=== PATIENT | female | born 1945 | race Caucasian/White ===

== ENCOUNTER → 2017-02-09 | Outpatient (CLI) | payer OTHER ==
[2016-07-24 11:00] VITALS: BP 113/47
[~2017-02-09] MED LIST: ASPI325T11 PO; ASPI81TA2 PO; ATOR20TA58 PO; CHOL20003 PO; CLOP75TA PO; CYAN25003 SL; GEMF600T3 PO; GLIM4TAB2 PO; IPRA4AER IH; LEVO150T5 PO; LOSA1TAB16 PO; MELO7.5O PO; METF-620 PO; METO25TA4 PO; PRIM50TA PO; TIOT18CA IH
--- NOTE | 2017-02-10 10:26 | CARD ---
APPROVED REPORT EXAM: Two-dimensional and M-mode echocardiogram with Doppler and color Doppler. Other Information Quality : Good INDICATION Cardiac Disease: CAD 2D DIMENSIONS RVDd3.7 (2.9-3.5cm)Left Atrium(2D)3.3 (1.6-4.0cm) IVSd1.4 (0.7-1.1cm)Aortic Root(2D)2.7 (2.0-3.7cm) LVDd4.5 (3.9-5.9cm)LVOT Diameter2.1 (1.8-2.4cm) PWd1.2 (0.7-1.1cm)LVDs3.4 (2.5-4.0cm) FS (%) 27.0 %SV44.5 ml LVEF(%)55.0 (>50%) Aortic Valve AoV Peak Talat.159.7cm/sAoV VTI39.9cm AO Peak GR.10.2mmHgLVOT Peak Talat.88.6cm/s LVOT VTI 22.92cmAO Mean GR.6mmHg SAMI (VMAX)1.72xf7GKD (VTI)1.94cm2 Mitral Valve MV E Hvgqxhju39.6cm/sMV DECEL QHAW308zq MV A Iejdxkso65.2cm/sMV MTP35hm E/A Ratio1.0MVA (PHT)3.31cm2 TDI E/Lateral E'10.9E/Medial E'11.2 Tricuspid Valve TR P. Dekblujz297pu/sRAP EWPNUVXP9yuNg TR Peak Gr.48sdApGXDP63vqTe Pulmonary Vein S1 Zgycegwm96.0cm/sD2 Zwrgfbrz56.1cm/s PVa lcitfigo535jiew LEFT VENTRICLE The left ventricle is normal size. There is mild concentric left ventricular hypertrophy. The left ve ntricular systolic function is normal and the ejection fraction is within normal range. The Ejection Fraction is 55-60%. There is normal LV segmental wall motion. The left ventricular diastolic function and filling is normal for age. RIGHT VENTRICLE The right ventricle is normal size. The right ventricular systolic function is normal. ATRIA The left atrium size is normal. The right atrium size is normal. The interatrial septum is intact wit h no evidence for an atrial septal defect or patent foramen ovale as noted on 2-D or Doppler imaging. The septum is slightly thickened and calcified. AORTIC VALVE Not well visualized. Doppler and Color Flow revealed no significant aortic regurgitation. There is no significant aortic valvular stenosis. MITRAL VALVE The mitral valve is normal in structure and function. There is no evidence of mitral valve prolapse. There is no mitral valve stenosis. Doppler and Color-flow revealed trace mitral regurgitation. TRICUSPID VALVE The tricuspid valve is normal in structure and function. Doppler and Color Flow revealed trace tricus pid regurgitation. The PA pressure was estimated at 37 mmHg. There is no tricuspid valve stenosis. PULMONIC VALVE Doppler and Color Flow revealed no pulmonic valvular regurgitation. There is no pulmonic valvular shayy nosis. GREAT VESSELS The aortic root is normal in size. The ascending aorta is normal in size. The IVC is normal in size a nd collapses >50% with inspiration. PERICARDIAL EFFUSION There is no evidence of significant pericardial effusion. Critical Notification Critical Value: No <Conclusion> The left ventricular systolic function is normal and the ejection fraction is within normal range. Th e Ejection Fraction is 55-60%. There is normal LV segmental wall motion. Doppler and Color Flow revealed trace tricuspid regurgitation. The PA pressure was estimated at 37 mm Hg.
== END | disposition home or self-care (01) ==
LOC: ECHO 11:01
PROVIDERS: ATTEND Internal Medicine Cardiovascular Disease
DX: I25.10 Atherosclerotic heart disease of native coronary artery without angina pectoris (principal); I51.7 Cardiomegaly
CPT/HCPCS: 93306

== ENCOUNTER → 2017-08-31 | Outpatient (CLI) | payer OTHER ==
[2016-07-24 11:00] VITALS: BP 113/47
[~2017-08-31] MED LIST changes: +ASPI-630 PO; -ASPI81TA2 PO; -CHOL20003 PO; +CHOL20009 PO; -LOSA1TAB16 PO; +LOSA1TAB19 PO; +REGADENOSON 0.4 MG/5 ML DISP.SYRIN. IV ONE
--- NOTE | 2017-08-31 13:35 | RAD ---
MR#: [id number] Date of Study: 08/31/2017 Ordering Physician: NATALIIA CHISHOLM, Referring Physician: ALEXI MANN Tech: MONIQUE Castro ARRT (R) (N) APPROVED REPORT Test Type: Pharmacological Stress Nurse/Tech: Alivia Nobles R.N. Test Indications: cad Cardiac History: stents 1 1/2 years ago, htn, dm Medications: see copy Medical History: see ehr Resting ECG: sr Resting Heart Rate: 57 bpm Resting Blood Pressure: 174/62mmHg Pretest Chest Pain: No chest pain Nurse/Tech Notes lungs cta, heart tones regular Consent: The procedure was explained to the patient in lay terms. Informed consent was witnessed. John eout was entered into [employer]. History and Stress Test performed by Alivia Nobles R.N. Pharm. Details Pharmacologic stress testing was performed using 0.4mg per 5ml of regadenoson given intravenously ove r 7-10 seconds. Stress Symptoms No chest pain or symptoms. POST EXERCISE Reason for Termination: Infusion complete Target HR: No Max HR: 84 bpm Max Blood Pressure: 160/60mmHg Chest Pain: No. Arrhythmia: No. ST Change: Yes. St depression in V5 and V6 noted, II III avf also INTERPRETATION Stress EKG Conclusion: Baseline EKG showed sinus rhythm. No ischemic changes at peak stress. No arr hythmias. Imaging Protocol IMAGE PROTOCOL: Rest Tc-99m/stress Tc-99m 1 day Rest: Stress: Viability: Radiopharm.Tc99m AznvsixxjVw60z Sestamibi Qjkc69fZc 34mCi Img Date 08/31/2017 08/31/2017 Rest Admin Site:IV - Right ForearmAdministrator:MONIQUE Castro ARRT (R)(N) Stress Admin Site: IV - Right ForearmAdministrator: JOAN Pride STRESS DATA End Diast. Vol.110.0mlAv. Heart Rate68.0bpm End Syst. Vol.27.0mlCO Index BSA0.0L/min Myocardial Svwq286.0gEject. Fjlpxuzk43.0% Stress Rates Pk. Fill Rate2.17EDV/secLVtime Pk. Fill 230.61msec Pk. Empty Rate2.75ESV/secLVtime Pk. Fxcqa924.70msec /3 Pk. Fill1.57EDV/sec Stress Scores Regional WT0.00Summed WT0.00 Regional WM0.00Summed WM2.00 LV Perfusion Small to moderate reversible defect involving the anteroapical wall consistent with ischemia. Wall Motion Normal left ventricle systolic function with ejection fraction calculated at 75%. LV Perf. Quant 17 Seg. SSS12.00 17 Seg. SRS4.00 17 Seg. SDS8.00 Stress Defect Extent (% LAD)23.10Rest Defect Extent (% LAD)10.60Rev. Defect Extent (% LAD)6.30 Stress Defect Extent (% LCX) 56.30Rest Defect Extent (% LCX)38.80Rev. Defect Extent (% LCX)6.30 Stress Defect Extent (% RCA)0.00Rest Defect Extent (% RCA)0.00Rev. Defect Extent (% RCA)0.00 Stress Defect Extent (% FIDELINA)21.10Rest Defect Extent (% FIDELINA)10.90Rev. Defect Extent (% FIDELINA)5.90 Conclusion 1. Regadenoson cardioisotope stress test showed grpwh-ip-pczxmmpv anteroapical wall ischemia. 2. Normal left ventricular systolic function with ejection fraction calculated at 75%. 3. Intermediate risk for cardiac events. Signed by : Nataliia Chisholm, Electronically Approved : 08/31/2017 13:35:07
== END | disposition home or self-care (01) ==
LOC: NM 08:50
PROVIDERS: ATTEND Internal Medicine Cardiovascular Disease
DX: I25.10 Atherosclerotic heart disease of native coronary artery without angina pectoris (principal); I10 Essential (primary) hypertension; E11.9 Type 2 diabetes mellitus without complications; I49.5 Sick sinus syndrome
CPT/HCPCS: 78452; 93017; 96374; 96375; 96376; A9500; J2785

== ENCOUNTER 2017-09-03 09:45 | Outpatient (CLI) | payer OTHER ==
[2017-09-03 10:10] LABS: HEMATOCRIT 33.5 % (36.0-47.0); HEMOGLOBIN 11.2 g/dL (12.0-15.5); MEAN CORPUSCULAR HEMOGLOBIN 36 pg (25-35); MEAN CORPUSCULAR HGB CONC 34 g/dL (31-37); MEAN CORPUSCULAR VOLUME 106 fL (79-100); PLATELET COUNT 357 x10^3/uL (140-400); RED BLOOD COUNT 3.17 x10^6/uL (3.50-5.40); WHITE BLOOD COUNT 10.7 x10^3/uL (4.0-11.0)
[2017-09-03 10:17] LABS: ANION GAP 9 (6-14); BLOOD UREA NITROGEN 16 mg/dL (7-20); CALCIUM 8.6 mg/dL (8.5-10.1); CARBON DIOXIDE 31 mmol/L (21-32); CHLORIDE 101 mmol/L (98-107); CREATININE 0.9 mg/dL (0.6-1.0); GFR 61.7; GLUCOSE 191 mg/dL (70-99); POTASSIUM 4.5 mmol/L (3.5-5.1); SODIUM 141 mmol/L (136-145)
[2017-09-03] MEDS ORDERED: LIDOCAINE 2% 20 ML VIAL. (10:25)
[2017-09-03] MEDS ORDERED: IOHEXOL 300 MG/ML 100ML VIAL. ×2 (10:25→11:32)
[2017-09-03 10:30] LABS: INR 0.9 (0.8-1.1)
[2017-09-03] MEDS ORDERED: fentaNYL PF VIAL 100 MCG/2 ML VIAL (11:03)
[2017-09-03] MEDS ORDERED: HEPARIN for IV BOLUS 10,000 UNIT/10 ML VIAL. (11:04)
[2017-09-03] MEDS ORDERED: VERAPAMIL 5 MG/2 ML VIAL. (11:04)
[2017-09-03] MEDS ORDERED: MIDAZOLAM HCL/PF 5 MG/5 ML VIAL. (11:04)
[2017-09-03] MEDS: IV 1/2 NORMAL SALINE 1,000 ML IV (11:05)
[2017-09-03] MEDS ORDERED: NITROGLYCERIN 200 MCG/2 ML SYRINGE FOR CATH/VASC LAB. (11:05)
[2017-09-03] MEDS ORDERED: BIVALIRUDIN 250 MG VIAL. IV (11:23)
[2017-09-03] MEDS: BIVALIRUDIN 250 MG VIAL. IV (11:26)
[2017-09-03] MEDS: IOHEXOL 300 MG/ML 100ML VIAL. IART (11:30)
[2017-09-03] MEDS ORDERED: CONTRAST GIVEN MC (11:30)
[2017-09-03] MEDS ORDERED: CLOPIDOGREL BISULFATE 75 MG TABLET (11:38)
[2017-09-03] MEDS ORDERED: hydrALAZINE 20 MG/ML VIAL. (11:41)
[2017-09-03] MEDS ORDERED: ASPIRIN 325 MG TABLET (11:41)
[2017-09-03] MEDS: CLOPIDOGREL BISULFATE 75 MG TABLET PO (11:45)
[2017-09-03] MEDS: fentaNYL PF VIAL 100 MCG/2 ML VIAL IV (11:48)
[2017-09-03] MEDS: VERAPAMIL 5 MG/2 ML VIAL. IART (11:48)
[2017-09-03] MEDS: MIDAZOLAM HCL/PF 5 MG/5 ML VIAL. IV (11:48)
[2017-09-03] MEDS: NITROGLYCERIN 200 MCG/2 ML SYRINGE FOR CATH/VASC LAB. IART (11:49)
[2017-09-03] MEDS: LIDOCAINE 2% 20 ML VIAL. IJ (11:50)
[2017-09-03] MEDS: hydrALAZINE 20 MG/ML VIAL. IVP (11:50)
[2017-09-03] MEDS: HEPARIN for IV BOLUS 10,000 UNIT/10 ML VIAL. IART (11:50)
[2017-09-03] MEDS: ASPIRIN 325 MG TABLET PO (12:30)
[2017-09-03] MEDS ORDERED: IV 1/2 NORMAL SALINE 1,000 ML IV (12:33)
[2017-09-03] MEDS ORDERED: NITROGLYCERIN SUBLINGUAL 0.4 MG BOTTLE OF 25. SL (12:45)
[2017-09-04] MEDS ORDERED: ASPIRIN ENTERIC COATED 325 MG TABLET.DR. PO (08:00)
[2017-09-04] MEDS ORDERED: CLOPIDOGREL BISULFATE 75 MG TABLET PO (08:00)
== END 2017-09-03 15:30 | disposition home or self-care (01) ==
LOC: CCL 09:45
DX: I25.110 Atherosclerotic heart disease of native coronary artery with unstable angina pectoris (principal); E78.00 Pure hypercholesterolemia, unspecified; Z98.51 Tubal ligation status; Z90.710 Acquired absence of both cervix and uterus; J44.9 Chronic obstructive pulmonary disease, unspecified; I10 Essential (primary) hypertension; E11.9 Type 2 diabetes mellitus without complications; F17.200 Nicotine dependence, unspecified, uncomplicated; Z87.440 Personal history of urinary (tract) infections
CPT/HCPCS: 36415; 80048; 85027; 85610; 92928; 93458; 99152; 99153; C1769; C1874; C1887; C1892; C9600; J0360; J0583; J1644; J2250; J3010; J3490; Q9967

== ENCOUNTER 2018-06-15 12:47 | Emergency (ER) | payer OTHER ==
[~2018-06-15] VITALS: Ht 162.6 cm; Wt 102.1 kg
[~2018-06-15 12:47] MED LIST changes: -GEMF600T3 PO; +GEMF600T4 PO; -METF-620 PO; +METF10007 PO; -REGADENOSON 0.4 MG/5 ML DISP.SYRIN. IV ONE
[2018-06-15] MEDS ORDERED: DIPHTH,PERTUSS(ACELL),TET TOX 0.5 ML DISP.SYRIN. VAX IM ONE (13:45)
[2018-06-15] MEDS ORDERED: oxyCODONE/APAP 5/325 1 TAB TABLET PO ONE ×2 (13:45→15:15)
--- NOTE | 2018-06-15 13:53 | PHYS DOC ---
Past Medical History Past Medical History: Diabetes-Type II, Hypertension Additional Past Medical Histor: heart stent Alcohol Use: None Drug Use: None Adult General Chief Complaint Chief Complaint: SHOULDER INJURY [facility] HPI Patient is a pleasant 72-year-old female who presents to the emergency department for evaluation. She states that she tripped down 2 stairs in her garage, and fell to the ground, landing primarily on her right side. She skinned her right knee, is complaining of right knee and right hip pain, as well as right shoulder and lumbar spine pain. She denies hitting her head or any loss of consciousness. She denies any neck pain or upper back pain. She denies any numbness or weakness but she was able to ambulate after the fall, but was somewhat painful to do so, with the pain in her right hip and lower back. She is able to move her right shoulder, although it is also painful to do so. She denies any chest pain or shortness of breath, dizziness or lightheadedness either prior to or subsequent to the fall. Movement and palpation worsen her pain. There are no alleviating factors to her symptoms. Review of Systems Review of Systems Constitutional: Denies fever or chills [] Eyes: Denies change in visual acuity, redness, or eye pain [] HENT: Denies nasal congestion or sore throat [] Respiratory: Denies cough or shortness of breath [] Cardiovascular: The patient denies any shortness of breath, chest pain, palpitations, or orthopnea [] GI: Denies abdominal pain, nausea, vomiting, bloody stools or diarrhea [] : Denies dysuria or hematuria [] Musculoskeletal:No additional information not addressed in HPI[] Integument: Patient does have a chronic fungal type appearing rash on her left [place] and right foot. Otherwise, Denies rash or skin lesions [] Neurologic: Denies headache, focal weakness or sensory changes [] Endocrine: Denies polyuria or polydipsia [] All other systems were reviewed and found to be within normal limits, except as documented in this note. Current Medications Current Medications Current Medications Medications (Trade) Dose Ordered Sig/Young Start Time Stop Time Status Last Admin Dose Admin Diphtheria/ Tetanus/Acell Pertussis (Boostrix) 0.5 ml ONCE ONCE 06/15/18 13:45 06/15/18 14:02 DC 06/15/18 13:45 0.5 ML Oxycodone/ Acetaminophen (Percocet 5/325) 1 tab 1X ONCE 06/15/18 15:15 06/15/18 15:16 DC 06/15/18 15:19 1 TAB Allergies Allergies Allergies Coded Allergies Type Severity Reaction Last Updated Verified No Known Drug Allergies 05/22/16 No Physical Exam Physical Exam PHYSICAL EXAM: CONSTITUTIONAL: Well developed, well nourished HEAD: normocephalic, atraumatic EENT: PERRL, EOMI. Conjunctivae normal color, sclerae non-icteric; moist mucous membranes. NECK: Supple, non-tender; no meningismus.There is no bony tenderness to palpation of the thoracic or lumbar spine. LUNGS: Lungs CTA, breathing even and unlabored. Normal air movement. HEART: Regular rate and rhythm, no murmur CHEST: No deformity; non-tender ABDOMEN: The abdomen is soft, and non-tender, no masses or bruits. EXTREM: There is a superficial abrasion to the right knee, without any definite bony tenderness to palpation. There is no crepitus, or joint effusion. There is normal range of motion in the right knee. There is diffuse tenderness to palpation of the right hip, although range of motion is present. It is relatively painful. However there is pain on palpation. There is diffuse tenderness to palpation of the right shoulder. The remainder of the right upper extremity and the other extremities are atraumatic, with Normal ROM; no deformity, no calf tenderness. Normal pulses palpable in all extremities. There is no pedal edema. SKIN: No rash; no diaphoresis NEURO: Alert; normal speech and cognition; CN's grossly intact; strength grossly intact without focal deficit. BACK: No CVA TTP. There is mild tenderness to palpation in lumbar spine diffusely without any focal bony tenderness to palpation. Current Patient Data Vital Signs Vital Signs Date Time Temp Pulse Resp B/P (MAP) Pulse Ox O2 Delivery O2 Flow Rate FiO2 06/15/18 15:19 18 98 06/15/18 13:05 97.7 72 181/73 (109) Room Air 97.7 EKG EKG [] Radiology/Procedures Radiology/Procedures [PROCEDURE: SHOULDER 2+V RIGHT KNEE RIGHT 3V, HIP RIGHT 2V WITH PELVIS, LUMBAR SPINE 2-3V, SHOULDER 2+V RIGHT History: PT FELL THIS AFTERNOON,RT KNEE PAIN,LACERATION. Right hip pain. Right knee pain with laceration. Low back pain. Right shoulder pain. Comparison: None are available AP pelvis with two-view right hip Suboptimal bone detail due to body habitus, but no evidence of an acute or displaced fracture. Joint space intact. Enthesophytes about the skeletal pelvis. Mild degenerative changes about the hips. Mild chondrocalcinosis at the pubic symphysis. IMPRESSION: No apparent acute findings. If symptoms persist, consider MRI of the right hip. 3 view right shoulder Degenerative changes at the acromioclavicular joint. Old fracture deformity of the right lateral fourth rib. No evidence of acute fracture or dislocation. Mild bone hypertrophy at the greater tuberosity. IMPRESSION: No acute fracture or dislocation Three-view lumbar spine Vertebral body height and alignment are intact. Mild degenerative spondylosis with marginal spurring. Dense calcifications of the abdominal aorta. Small nonspecific calcification in the right upper quadrant, indeterminant. This is not the typical morphology of a gallstone. IMPRESSION: Degenerative spondylosis without evidence of compression fracture or subluxation. 3 view right knee Calcified lesion within the distal femur, centered at the metaphysis and marginating the growth plate, appearance and location would be typical for an enchondroma, measures 2.8 cm. Mild degenerative changes at the medial joint compartment of the knee. Enthesophytes at the extensor mechanism attachments. Vascular calcification noted There is an expansile bone lesion at the proximal fibula measures about 5.3 cm longitudinal. Indeterminate appearance. IMPRESSION: 1. Expansile bone lesion of the proximal fibula, uncertain etiology. Further evaluation could be obtained with outpatient MRI. 2. Distal femur lesion, most likely an enchondroma. 3. No evidence of acute fracture or dislocation. ] PROCEDURE: CT PELVIS WO CONTRAST CT of the pelvis without contrast, 06/15/2018: HISTORY: Fall, pain Noncontrast scans were obtained with multiplanar reconstructions produced. There is moderate degenerative change at both hip joints. There is spurring along both greater trochanters. Calcifications adjacent to both greater trochanters are probably tendinous. There are moderate spurs along the lateral aspects of both iliac crests. No acute fracture or dislocation is identified. Moderate degenerative change is present in the lower lumbar spine. Spurring is producing moderate to severe foraminal encroachment bilaterally at L5-S1. Aortoiliac iliac calcific plaquing is present. No pelvic mass or hematoma is identified. Incidental note is made of a 2 cm medium density mass arising from the lateral aspect of the right kidney. This is probably a complicated cyst, although a solid renal mass cannot be excluded. IMPRESSION: 1. No acute bony abnormality is detected. 2. Moderate degenerative change at both hip joints and in the lower lumbar spine. 3. Small right renal nodule. Nonemergent renal ultrasound may be useful for further evaluation. Course & Med Decision Making Course & Med Decision Making Pertinent Imaging studies reviewed. (See chart for details) [3:50 PM: The patient's condition remained stable. I discussed test results with the patient and her family, the need for close follow-up, and return precautions. The patient was initially hesitant to bear weight on her right hip secondary to pain so CT was obtained to rule out occult hip or pelvis fracture, which was not evident and imaging. Dragon Disclaimer Dragon Disclaimer This electronic medical record was generated, in whole or in part, using a voice recognition dictation system. Departure Departure Impression: Primary Impression: Contusion, hip Additional Impressions: Accidental fall Abrasion Disposition: 01 HOME, SELF-CARE Condition: STABLE Referrals: SRAVAN BRADLEY MD (PCP) Patient Instructions: Abrasions, Contusion, Fall Prevention and Home Safety Additional Instructions: Ibuprofen 400 mg every 6 hours may help improve your symptoms. Applying ice to the affected area may help improve your symptoms. The prescribed medications may cause drowsiness-use caution while taking. Scripts Oxycodone/Apap 5-325 (PERCOCET 5-325 MG TABLET) 1 Each Tablet 1 TAB PO QID, #30 TAB Prov: RENE BOUCHER MD 06/15/18 Problem Qualifiers RENE BOUCHER MD Jun 15, 2018 13:53
--- NOTE | 2018-06-15 14:30 | RAD ---
KNEE RIGHT 3V, HIP RIGHT 2V WITH PELVIS, LUMBAR SPINE 2-3V, SHOULDER 2+V RIGHT History: PT FELL THIS AFTERNOON,RT KNEE PAIN,LACERATION. Right hip pain. Right knee pain with laceration. Low back pain. Right shoulder pain. Comparison: None are available AP pelvis with two-view right hip Suboptimal bone detail due to body habitus, but no evidence of an acute or displaced fracture. Joint space intact. Enthesophytes about the skeletal pelvis. Mild degenerative changes about the hips. Mild chondrocalcinosis at the pubic symphysis. IMPRESSION: No apparent acute findings. If symptoms persist, consider MRI of the right hip. 3 view right shoulder Degenerative changes at the acromioclavicular joint. Old fracture deformity of the right lateral fourth rib. No evidence of acute fracture or dislocation. Mild bone hypertrophy at the greater tuberosity. IMPRESSION: No acute fracture or dislocation Three-view lumbar spine Vertebral body height and alignment are intact. Mild degenerative spondylosis with marginal spurring. Dense calcifications of the abdominal aorta. Small nonspecific calcification in the right upper quadrant, indeterminant. This is not the typical morphology of a gallstone. IMPRESSION: Degenerative spondylosis without evidence of compression fracture or subluxation. 3 view right knee Calcified lesion within the distal femur, centered at the metaphysis and marginating the growth plate, appearance and location would be typical for an enchondroma, measures 2.8 cm. Mild degenerative changes at the medial joint compartment of the knee. Enthesophytes at the extensor mechanism attachments. Vascular calcification noted There is an expansile bone lesion at the proximal fibula measures about 5.3 cm longitudinal. Indeterminate appearance. IMPRESSION: 1. Expansile bone lesion of the proximal fibula, uncertain etiology. Further evaluation could be obtained with outpatient MRI. 2. Distal femur lesion, most likely an enchondroma. 3. No evidence of acute fracture or dislocation. Electronically signed by: Gamaliel Peter MD (06/15/2018 2:27 PM) [facility]
--- NOTE | 2018-06-15 15:41 | RAD ---
CT of the pelvis without contrast, 06/15/2018: HISTORY: Fall, pain Noncontrast scans were obtained with multiplanar reconstructions produced. There is moderate degenerative change at both hip joints. There is spurring along both greater trochanters. Calcifications adjacent to both greater trochanters are probably tendinous. There are moderate spurs along the lateral aspects of both iliac crests. No acute fracture or dislocation is identified. Moderate degenerative change is present in the lower lumbar spine. Spurring is producing moderate to severe foraminal encroachment bilaterally at L5-S1. Aortoiliac iliac calcific plaquing is present. No pelvic mass or hematoma is identified. Incidental note is made of a 2 cm medium density mass arising from the lateral aspect of the right kidney. This is probably a complicated cyst, although a solid renal mass cannot be excluded. IMPRESSION: 1. No acute bony abnormality is detected. 2. Moderate degenerative change at both hip joints and in the lower lumbar spine. 3. Small right renal nodule. Nonemergent renal ultrasound may be useful for further evaluation. PQRS Compliance Statement: One or more of the following individualized dose reduction techniques were utilized for this examination: 1. Automated exposure control 2. Adjustment of the mA and/or kV according to patient size 3. Use of iterative reconstruction technique Electronically signed by: Eldon Santiago MD (06/15/2018 3:38 PM) [facility]
[2018-06-15] MEDS ORDERED: OXYC-323 PO (15:54)
[2018-06-15 16:52] VITALS: BP 170/81
== END 2018-06-15 17:04 | disposition home or self-care (01) ==
LOC: ER 12:47
DX: S70.01XA Contusion of right hip, initial encounter (principal); S80.211A Abrasion, right knee, initial encounter; M25.511 Pain in right shoulder; M54.5 Low back pain; R21 Rash and other nonspecific skin eruption; E11.9 Type 2 diabetes mellitus without complications; I10 Essential (primary) hypertension; W01.0XXA Fall on same level from slipping, tripping and stumbling without subsequent striking against object, initial encounter; Y93.89 Activity, other specified; Y92.89 Other specified places as the place of occurrence of the external cause; Y99.8 Other external cause status
CPT/HCPCS: 72100; 72192; 73030; 73502; 73562; 90471; 90715; 99284-25

== ENCOUNTER → 2019-04-10 | Outpatient (CLI) | payer OTHER ==
[~2019-04-10] MED LIST changes: -GEMF600T4 PO; +GEMF600T8 PO; +OXYC1TAB15 PO; +REGADENOSON 0.4 MG/5 ML DISP.SYRIN. IV ONE
--- NOTE | 2019-04-10 11:48 | RAD ---
MR#: [id number] Date of Study: 04/10/2019 Ordering Physician: NATALIIA CHISHOLM, Referring Physician: ALEXI MANN Tech: Miguel Shanks, RT (R) (N) APPROVED REPORT Test Type: Pharmacological Stress Nurse/Tech: Constantino Graff RN Test Indications: CAD Cardiac History: COPD, CAD, 2 stents, x-smoker, DM Medications: See Electronic Medical Record Medical History: See Electronic Medical Record Resting ECG: SR Resting Heart Rate: 81 bpm Resting Blood Pressure: 148/55mmHg Pretest Chest Pain: None Nurse/Tech Notes Lungs CTA, S1S2 Consent: The procedure was explained to the patient in lay terms. Informed consent was witnessed. John eout was entered into [employer]. History and Stress Test performed by Constantino Graff RN Pharm. Details Pharmacologic stress testing was performed using 0.4mg per 5ml of regadenoson given intravenously ove r 7-10 seconds. Stress Symptoms dyspnea, no chest pain POST EXERCISE Reason for Termination: Infusion complete Max HR: 104 bpm Max Blood Pressure: 164/52mmHg Blood Pressure response to exercise: Normal blood pressure response during stress. Heart Rate response to exercise: normal response Chest Pain: No. Arrhythmia: No. ST Change: No. INTERPRETATION Stress EKG Conclusion: Baseline EKG showed sinus rhythm. No ischemic changes at peak stress. No arr hythmias. Imaging Protocol IMAGE PROTOCOL: Rest Tc-99m/stress Tc-99m 1 day Rest: Stress: Viability: Radiopharm.Tc99m ZeogultxlNa97e Sestamibi Beou57rGg 33mCi Duration 15min. 15min. Img Date 04/10/2019 04/10/2019 Inj-Img Txca21gid. 60min. Rest Admin Site:IV - Left ForearmAdministrator:MONIQUE Castro, ARRT (R)(N) Stress Admin Site: IV - Left ForearmAdministrator: JOAN Pride STRESS DATA End Diast. Vol.86.0mlAv. Heart Rate93.0bpm End Syst. Vol.16.0mlCO Index BSA0.0L/min Myocardial Mdwx771.0gEject. Npsndpws78.0% Stress Rates Pk. Fill Rate3.87EDV/secLVtime Pk. Fill 141.33msec Pk. Empty Rate4.37ESV/secLVtime Pk. Eject68.62msec 1/3 Pk. Fill1.05EDV/sec Stress Scores Regional WT0.00Summed WT0.00 Regional WM0.00Summed WM1.00 Study quality was good. Left Ventricular size was Normal at Rest and Stress. Lung uptake was . Left Ventricular ejection fraction is 81%. The rest and stress images show normal perfusion, normal contraction and thickening. LV Perf. Quant 17 Seg. SSS4.00 17 Seg. SRS2.00 17 Seg. SDS3.00 Stress Defect Extent (% LAD)0.00Rest Defect Extent (% LAD)4.40Rev. Defect Extent (% LAD)0.00 Stress Defect Extent (% LCX) 32.50Rest Defect Extent (% LCX)0.00Rev. Defect Extent (% LCX)21.30 Stress Defect Extent (% RCA)0.00Rest Defect Extent (% RCA)0.00Rev. Defect Extent (% RCA)0.00 Stress Defect Extent (% FIDELINA)5.70Rest Defect Extent (% FIDELINA)2.00Rev. Defect Extent (% FIDELINA)3.70 Conclusion 1. Regadenoson cardioisotope stress test did not show any evidence of ischemia or infarct. 2. Normal left ventricular systolic function with ejection fraction calculated at 81%. 3. Low risk for cardiac events. Signed by : Nataliia Chisholm, Electronically Approved : 04/10/2019 11:48:15
== END | disposition home or self-care (01) ==
LOC: NM 07:36
PROVIDERS: ATTEND Internal Medicine Cardiovascular Disease
DX: I25.10 Atherosclerotic heart disease of native coronary artery without angina pectoris (principal); J44.9 Chronic obstructive pulmonary disease, unspecified; E11.9 Type 2 diabetes mellitus without complications; Z95.5 Presence of coronary angioplasty implant and graft; Z87.891 Personal history of nicotine dependence
CPT/HCPCS: 78452; 93017; A9500; J2785

== ENCOUNTER → 2019-05-22 | Outpatient (CLI) | payer OTHER ==
[~2019-05-22] VITALS: Ht 160 cm; Wt 97.1 kg
[2019-05-22] VITALS (8 sets, daily range): BP systolic 126–171; BP diastolic 49–73
[~2019-05-22] MED LIST changes: +CONTRAST GIVEN. MC PRN; +DULA0.75 SQ; +IOHEXOL 300 MG/ML 100ML VIAL. IART ONE; +IOHEXOL 300 MG/ML 100ML VIAL. ONE; +IV 1/2 NORMAL SALINE 1,000 ML IV SCH; +LIDOCAINE 1% Multi-Dose 20 ML VIAL. INJ ONE; +LIDOCAINE 1% Multi-Dose 20 ML VIAL. ONE; +LIDOCAINE 1% PF 2 ML VIAL. ONE; +MIDAZOLAM HCL/PF 5 MG/5 ML VIAL. IV ONE; +MIDAZOLAM HCL/PF 5 MG/5 ML VIAL. ONE; +NITROGLYCERIN SUBLINGUAL 0.4 MG BOTTLE OF 25. SL PRN; -REGADENOSON 0.4 MG/5 ML DISP.SYRIN. IV ONE; +fentaNYL PF VIAL 100 MCG/2 ML VIAL IV ONE; +fentaNYL PF VIAL 100 MCG/2 ML VIAL ONE
[2019-05-22 10:15] LABS: HEMATOCRIT 30.8 % (36.0-47.0); HEMOGLOBIN 10.5 g/dL (12.0-15.5); RED BLOOD COUNT 2.94 x10^6/uL (3.50-5.40); RED CELL DISTRIBUTION WIDTH 14.1 % (11.5-14.5); WHITE BLOOD COUNT 8.3 x10^3/uL (4.0-11.0)
[2019-05-22 10:25] LABS: CALCIUM 8.9 mg/dL (8.5-10.1); CREATININE 1.2 mg/dL (0.6-1.0); GFR 44.2; POTASSIUM 4.8 mmol/L (3.5-5.1)
[2019-05-22 10:28] LABS: PROTHROMBIN TIME PATIENT 11.7 SEC (11.7-14.0)
--- NOTE | 2019-05-22 14:50 | PDOC ---
MODERATE SEDATION ASSESSMENT RISKS/ALTERNATIVES Risks/Alternatives Risks and alternatives of this type of sedation and procedure discussed with: RISK/ALTERNATIVES: Patient H & P ON CHART H & P H & P on chart and reviewed for co-morbid conditions and appropriate labs. H&P ON CHART: Yes STATUS PREG STATUS ASSESSED: N/A MEDS/ALLERGIES REVIEWED Meds/Allergies Reviewed Medications and Allergies including time and route of recently administered narcotics and sedatives. MEDS/ALLERGIES REVIEWED: Yes ASA RATING ASA RATING: III AIRWAY ASSESSMENT Airway Assessment Airway patency, oral function limitations, presence of caps, crowns, dentures, partials, and ability to extend neck assessed. AIRWAY ASSESSMENT: Yes MALLAMPATI SCORE MALLAMPATI SCORE: II PRE-SEDATION ASSESSMENT PRE-SEDATION ASSESSMENT: Yes NATALIIA CHISHOLM MD May 22, 2019 14:50
--- NOTE | 2019-05-22 15:07 | CARD ---
MR#: [id number] Date of Study: 05/22/2019 Ordering Physician: NATALIIA ROSAS, Referring Physician: NATALIIA ROSAS Tech: Shahrzad Barragan APPROVED REPORT Technologist: Shahrzad Barragan Nurse: Allison Villanueva R.N. Procedure(s) performed: Right and left heart catheterization, selective coronary angiography and left ventriculography fl time: 4.4 mins dose: 43 gy/cm2 contrast: 99 ml omni moderate sedation: 50 min INDICATION The indication(s) include : Refractory dyspnea on exertion and history of coronary artery disease. [facility] Clinical Frailty Scale [facility] Clinical Frailty Scale: Mildly Frail Heart Failure Heart Failure: No PROCEDURE NARRATIVE After explaining the risks, benefits and alternative options, informed consent was obtained from chuy ent patient was brought to the cardiac Sample Processor and her right groin was prepped and draped in the usu al fashion. 20 mL of 2% lidocaine was infiltrated into the skin and subcutaneous tissues for local an esthesia. Arterial and venous accesses were obtained in the right common femoral artery and vein resp ectively and 6 and 8 Welsh sheaths inserted. A 7.5 Welsh [place] catheter was then advanced under fluoroscopy guidance and intracardiac pressures, oxygen saturations and cardiac output by thermodilu tion method were measured. Subsequently, 6 Welsh JL4 and 6 Welsh JR4 catheters placed to perform se lective angiography of the left and right coronary arteries. 6 Welsh pigtail catheter was used to pe rform left ventriculography. Patient tolerated the procedure well. Hemostasis was achieved using Joseline o-Seal. There were no immediate complications. FINDINGS A. RIGHT HEART CATHETERIZATION: 1. Intracardiac pressures: Mean right atrial pressure 12 mmHg, right ventricle pressure 61/12 mmHg, pulmonary artery pressure 62/25 mmHg with mean PA pressure 43 mmHg suggestive of moderate pulmonary hypertension. Main pulmonary capillary wedge pressure was 29 mmHg suggestive of elevated left ventric ular filling pressures from acute on chronic diastolic heart failure. 2. Oxygen saturations: Right atrium 63.6%, pulmonary artery 68.1%, femoral arterial sheath 96.4%. N o evidence of intracardiac shunt. 3. Cardiac output by thermodilution method 6.3 L/m. B. LEFT HEART CATHETERIZATION: 1. Hemodynamics: Elevated left ventricle end-diastolic pressure of 29 mmHg consistent with acute on chronic diastolic heart failure. No pullback gradient across the aortic valve. 2. Left ventriculography: Normal left ventricle systolic function with ejection fraction estimated at 60%. No significant mitral regurgitation seen. 3. Coronary angiography: a. The left main coronary artery arose from the left sinus of Valsalva, gave rise to the left anteri or descending and left circumflex arteries and did not show any significant stenosis. b. The left anterior descending artery showed widely patent previously placed stent in the proximal to midsegment. c. The left circumflex artery showed widely patent previously placed stent in the midsegment. d. The right coronary artery was a large and dominant vessel arising from the right sinus of Valsalv a that did not show any significant stenosis. Conclusion 1. Widely patent previous replaced stents in the left anterior descending and left circumflex arteri es. No lesions needing intervention were noted. 2. Normal left ventricle systolic function with ejection fraction estimated at 60%. 3. Moderate pulmonary hypertension with mean PA pressure 43 mmHg. 4. Acute on chronic diastolic heart failure with elevated LVEDP and mean primary capillary wedge pre ssures. 5. No evidence of intracardiac shunt. Recommendations Optimization of medical therapy. Signed by : Nataliia Rosas, Electronically Approved : 05/22/2019 15:06:52
--- NOTE | 2019-05-22 16:56 | NUR ---
Pt A&O x3 . denies pain, nausea or dizziness. VSS. tolerating po well. ambulated to BR w/o problem. Right groin site clean and dry. no bleeding or swelling. d/c instructions given, questions answered. out to vehicle per w/c - pt's to drive her home.
== END ==
LOC: CCL 09:49
PROVIDERS: ATTEND Internal Medicine Cardiovascular Disease
DX: I25.10 Atherosclerotic heart disease of native coronary artery without angina pectoris (principal); I27.20 Pulmonary hypertension, unspecified; I10 Essential (primary) hypertension; E78.5 Hyperlipidemia, unspecified; E11.9 Type 2 diabetes mellitus without complications; Z90.49 Acquired absence of other specified parts of digestive tract; Z90.710 Acquired absence of both cervix and uterus; Z79.84 Long term (current) use of oral hypoglycemic drugs
CPT/HCPCS: 36415; 80048; 85027; 85610; 93460; 99152; 99153; C1760; C1769; C1773; C1892; J1644; J2250; J3010; Q9967; G0269; C1771